=== PATIENT | female | born 1985 | race Caucasian/White ===

== ENCOUNTER 2017-07-28 12:45 | Day surgery (SDC) | payer OTHER ==
[2017-07-28] MEDS ORDERED: DEXAMETHASONE SOD PHOSPHATE INJ 4 MG/1 ML VIAL ONE (14:36)
[2017-07-28] MEDS ORDERED: ONDANSETRON HCL INJ/PF 4 MG/2 ML SDV ONE (14:37)
[2017-07-28] MEDS ORDERED: MIDAZOLAM 2 MG/2 ML INJ ONE (14:37)
[2017-07-28] MEDS ORDERED: FENTANYL CITRATE INJ/PF 100 MCG/2 ML AMPUL ONE (14:37)
[2017-07-28] MEDS ORDERED: PROPOFOL INJ 200 MG/20 ML VIAL IV ONE (14:37)
[2017-07-28] MEDS ORDERED: SUCCINYLCHOLINE CHLORIDE INJ 200 MG/10 ML VIAL ONE (14:38)
[2017-07-28] MEDS: BUPIVACAINE HCL 0.5%-EPI 1:200000 INJ/PF 30 ML VIAL ONE ×2 (15:05)
[2017-07-28] MEDS ORDERED: OXYCODONE-ACETAMINOPHEN 5-325 MG TABLET ONE (15:44)
--- NOTE | 2017-07-29 18:27 | [facility] OPERATIVE REPORT E ---
[facility] Operative Report NAME: PACHECO MEJIA AGE: 32Y DATE OF SURGERY: 07/28/2017 PREOPERATIVE DIAGNOSIS: CHRONIC TONSILLITIS. POSTOPERATIVE DIAGNOSIS: CHRONIC TONSILLITIS. OPERATION PERFORMED: Bilateral tonsillectomy, patient age greater than 12. SURGEON: ISAIAS PALACIOS D.O. ANESTHESIA: General endotracheal tube. ANESTHESIA STAFF: ADINA Alfred ESTIMATED BLOOD LOSS: 5 mL COMPLICATIONS: None. DRAINS: None. SPONGE COUNT: Verified. MATERIALS FORWARDED SPECIMEN: Left and right tonsillar tissue. FINDINGS: 1. The tonsils were noted to be 1 to 2+ in size, were cryptic in appearance, and were with significant tonsillar debris present bilateral. 2. The soft palatal tissues were redundant in nature, and the uvula was otherwise unremarkable in appearance. INDICATIONS: This is a 32-year-old white female patient who was seen and evaluated in the [facility]. The patient had been referred for, and she complained of, a longstanding history over the years consistent with chronic tonsillitis and symptoms and history consistent with keratosis pharyngeus. The patient has desired to undergo tonsil surgery over the years to move beyond her chronic tonsil difficulties. After extensive discussion with the patient, recommendation and plan was made for tonsillectomy. The patient voiced an understanding of the described surgical plan, agreed to proceed, and consent was obtained. PROCEDURE: The patient was taken to the main operating room and placed on the operating room table in the supine position. Appropriate monitors were placed. Using mask and IV access, general anesthesia was induced. The patient was next transorally intubated without difficulty. The patient was rotated 90 degrees and positioned for tonsil surgery. The patient's lips, teeth, tongue and inside of the mouth were inspected and noted to be without defects. There was a mouth gag inserted. It was opened, and the patient was placed into suspension. There was a soft catheter placed through the patient's nose that was used to suspend the soft palate. Findings are as noted above. Local anesthetic with epinephrine was injected at the prabhu-tonsillar areas. At this point, the plasma J-hook device was used to dissect and remove tonsillar tissue on each side. This device was also used to provide adequate hemostasis. Saline irritation was performed and suctioned. There was adequate hemostasis noted. The soft catheter was next released and removed from the patient's nose. The mouth gag was removed from the patient's mouth without difficulty. There was no damage to the lips, teeth, tongue, gums, or inside of the mouth. The patient was then returned to the anesthesia staff and was allowed to emerge from general anesthesia. The patient was extubated in the main operating room and was then transported to the post-anesthesia recovery unit in stable condition. There were no complications. DICTATING PHYSICIAN: ISAIAS PALACIOS D.O. [id number] PHY#: [id number] ID: [id number] JOB#: [id number] ACCT: [id number] cc:ISAIAS PALACIOS D.O. > MTDD
== END 2017-07-28 16:39 | disposition home or self-care (01) ==
LOC: SC 12:45
PROVIDERS: ATTEND Otolaryngology
PROC: 0CTPXZZ Resection of Tonsils, External Approach (ICD-10-PCS; principal; 2017-07-28 14:00)
DX: J35.01 Chronic tonsillitis (principal); F17.210 Nicotine dependence, cigarettes, uncomplicated; F32.9 Major depressive disorder, single episode, unspecified; Z79.899 Other long term (current) drug therapy
CPT/HCPCS: 88304 ×2; 42826; J2250; J3490; J1100; J3010; J0330; J2405; J2704; 170

== ENCOUNTER 2020-04-09 14:24 | Emergency (ER) | payer OTHER ==
--- NOTE | 2020-04-09 17:17 | ER Document Report ---
ED Headache - General Chief Complaint: Headache Stated Complaint: DRY COUGH/HEADACHE/NECK PAIN Time Seen by Provider: 04/09/20 16:40 Primary Care Provider: VITOR PARIS MD [ACTIVE STAFF] - Follow up as needed Notes: CHIEF COMPLAINT: Headache cough shortness of breath HPI: 35-year-old female presenting for slight dry cough with some shortness of breath that she feels is not normal for her over the last week. No fever. Patient states that she has had some intermittent headaches over the last 3 to 4 days more on the right side with some radiation down the posterior neck into the back. No anterior neck pain. Patient states the headaches are intermittent and go away on their own without treatment. Today she was at the gym and states that every time she would jump she would feel a "clicking" in the upper aspect of the right forehead where she would have a headache. She has no headache currently. No visual change or loss. Denies nausea vomiting. ROS: See HPI - all other systems were reviewed and are otherwise negative Constitutional: no fever Eyes: no drainage, no blurred vision ENT: no runny nose, no sore throat Cardiovascular: no chest pain Resp: + SOB, + cough GI: no vomiting, no diarrhea, no abdominal pain : no dysuria Integumentary: no rash Allergy: no hives Musculoskeletal: no extremity pain or swelling Neurological: no numbness/tingling, no weakness MEDICATIONS: I agree with the patient medications as charted by the RN. ALLERGIES: I agree with the allergies as charted by the RN. PAST MEDICAL HISTORY/PAST SURGICAL HISTORY: Reviewed and agree as charted by RN. SOCIAL HISTORY: Reviewed and agree as charted by RN. FAMILY HISTORY: No significant familial comorbid conditions directly related to patient complaint EXAM: Reviewed vital signs as charted by RN. CONSTITUTIONAL: Alert and oriented and responds appropriately to questions. Well-appearing; well-nourished HEAD: Normocephalic; atraumatic EYES: PERRL; Conjunctivae clear, sclerae non-icteric. Funduscopic exam reveals no evidence of disc edema or hemorrhage ENT: normal nose; no rhinorrhea; moist mucous membranes; pharynx without lesions noted, no uvula edema or deviation, no tonsillar hypertrophy, phonation normal NECK: Supple without meningismus; non-tender; no cervical lymphadenopathy, no masses CARD: RRR; no murmurs, no clicks, no rubs, no gallops; symmetric distal pulses RESP: Normal chest excursion without splinting or tachypnea; breath sounds clear and equal bilaterally; no wheezes, no rhonchi, no rales, pulse oximetry 99% on room air not hypoxic ABD/GI: Normal bowel sounds; non-distended; soft, non-tender, no rebound, no guarding; no palpable organomegaly or masses. BACK: The back appears normal and is non-tender to palpation, there is no CVA tenderness EXT: Normal ROM in all joints; non-tender to palpation; no cyanosis, no effusions, no edema SKIN: Normal color for age and race; warm; dry; good turgor; no acute lesions noted NEURO: Moves all extremities equally; Motor and sensory function intact. Gait is normal. Strength equal 5/5 bilateral upper and lower extremities. Sensation intact and equal bilateral upper and lower extremities. PSYCH: The patient's mood and manner are appropriate. Grooming and personal hygiene are appropriate. MDM: 35-year-old otherwise healthy female intermittent headaches for 3 to 4 days a clicking sensation when jumping at the gym today in the head. Neurologically intact headache is completely resolved at this time. Also with a slight cough and some subjective shortness of breath over the last week. No fever no dyspnea. Will obtain chest x-ray and COVID test. Patient does report that her uncle possibly had an aneurysm but she does not know what type. No history of aneurysms in mother father or brothers or sisters TRAVEL OUTSIDE OF THE [place] IN LAST 30 DAYS: No - Related Data Allergies/Adverse Reactions: No Known Allergies Allergy (Verified 04/09/20 16:47) Home Medications: Wellbutrin, klonopin, b/c, and vitamins (misc) Past Medical History - Social History Smoking Status: Former Smoker Chew tobacco use (# tins/day): No Frequency of alcohol use: Social Drug Abuse: None Family History: Reviewed & Not Pertinent Patient has homicidal ideation: No - Past Medical History Cardiac Medical History: Denies: Hx Heart Attack, Hx Hypertension Pulmonary Medical History: Denies: Hx Asthma Neurological Medical History: Denies: Hx Cerebrovascular Accident, Hx Seizures GI Medical History: Denies: Hx Hepatitis, Hx Hiatal Hernia, Hx Ulcer Infectious Medical History: Denies: Hx Hepatitis Past Surgical History: Denies: Hx Hysterectomy, Hx Mastectomy, Hx Open Heart Surgery, Hx Pacemaker - Immunizations Hx Diphtheria, Pertussis, Tetanus Vaccination: Yes Physical Exam - Vital signs Vitals: Temp Pulse Resp BP Pulse Ox 98.1 F 75 20 128/82 H 100 04/09/20 14:30 04/09/20 14:30 04/09/20 14:30 04/09/20 14:30 04/09/20 14:30 Course - Re-evaluation Re-evalutation: 04/09/20 17:31 Chest x-ray on my review does not show evidence of infiltrate pneumothorax or pneumonia 04/09/20 19:07 CT of the head does not show evidence of bleed or fracture. Alert and oriented answering all questions appropriately we discussed her CT findings she follows at [facility] and will follow back up through them for further evaluation if her symptoms recur or persist. 04/09/20 19:08 Patient will be considered a person under investigation for COVID-19 will self quarantine at home pending results - Vital Signs Vital signs: Temp Pulse Resp BP Pulse Ox 98.1 F 75 20 128/82 H 100 04/09/20 14:30 04/09/20 14:30 04/09/20 14:30 04/09/20 14:30 04/09/20 14:30 Discharge - Discharge Clinical Impression: Cough, Person under investigation for COVID-19 Dyspnea Qualifiers: Dyspnea type: other forms of dyspnea Qualified Code(s): R06.09 - Other forms of dyspnea Headache Qualifiers: Headache type: unspecified Headache chronicity pattern: acute headache Intractability: not intractable Qualified Code(s): R51 - Headache Condition: Stable Disposition: HOME, SELF-CARE Instructions: COVID-19 Guidance for Persons Under Investigation Additional Instructions: Motrin or Tylenol for headache or pain. Follow-up with your primary provider for further evaluation if you should have the clicking sensation continuing in the head your CT imaging today did not show evidence of bleeding. You may need further outpatient testing. If you suddenly lose vision, pass out, have weakness numbness or tingling on the left or right side return for reevaluation. You are considered a person under investigation for COVID-19 at this time self quarantine at home pending your results which may take 2 to 5 days and you should hear from someone at the hospital about your results. If you have shortness of breath you may use the albuterol inhaler 2 puffs every 4 hours as needed Prescriptions: Albuterol Sulfate [Proair HFA Inhalation Aerosol 8.5 gm MDI] 2 puff IH Q4H PRN #1 mdi PRN Reason:
--- NOTE | 2020-04-09 17:56 | RADIOLOGY REPORT (SQ) ---
EXAM DESCRIPTION: CHEST SINGLE VIEW IMAGES COMPLETED DATE/TIME: 04/09/2020 5:34 pm REASON FOR STUDY: sob COMPARISON: None. EXAM PARAMETERS: NUMBER OF VIEWS: One view. TECHNIQUE: Single frontal radiographic view of the chest acquired. RADIATION DOSE: NA LIMITATIONS: None. FINDINGS: LUNGS AND PLEURA: No opacities, masses or pneumothorax. No pleural effusion. MEDIASTINUM AND HILAR STRUCTURES: No masses. Contour normal. HEART AND VASCULAR STRUCTURES: Heart normal in size. Normal vasculature. BONES: No acute findings. HARDWARE: None in the chest. OTHER: No other significant finding. IMPRESSION: NO ACUTE RADIOGRAPHIC FINDING IN THE CHEST. TECHNICAL DOCUMENTATION: JOB ID: [id number] 2010 [employer]- All Rights Reserved Reading location - IP/workstation name: [email or web address]
[2020-04-09] MEDS ORDERED: IBUPROFEN 600 MG TABLET PO ONE (18:49)
--- NOTE | 2020-04-09 18:58 | RADIOLOGY REPORT (SQ) ---
EXAM DESCRIPTION: CT HEAD WITHOUT IMAGES COMPLETED DATE/TIME: 04/09/2020 6:42 pm REASON FOR STUDY: headache COMPARISON: None. TECHNIQUE: Axial images acquired through the brain without intravenous contrast. Images reviewed wi th bone, brain and subdural windows. Additional sagittal and coronal reconstructions were generated. Images stored on PACS. All CT scanners at this facility use dose modulation, iterative reconstruction, and/or weight based d osing when appropriate to reduce radiation dose to as low as reasonably achievable (ALARA). [facility]: Dose Right [facility]: CareDose [facility]: Dose Right [facility]: Teradose 4D [facility]: [employer] RADIATION DOSE: CT Rad equipment meets quality standard of care and radiation dose reduction techniq ues were employed. CTDIvol: 53.2 mGy. DLP: 1097 mGy-cm. mGy. LIMITATIONS: None. FINDINGS: VENTRICLES: Normal size and contour. CEREBRUM: No masses. No hemorrhage. No midline shift. No evidence for acute infarction. Normal gra y/white matter differentiation. No areas of low density in the white matter. CEREBELLUM: No masses. No hemorrhage. No alteration of density. No evidence for acute infarction. EXTRAAXIAL SPACES: No fluid collections. No masses. ORBITS AND GLOBE: No intra- or extraconal masses. Normal contour of globe without masses. CALVARIUM: No fracture. PARANASAL SINUSES: No fluid or mucosal thickening. SOFT TISSUES: No mass or hematoma. OTHER: No other significant finding. IMPRESSION: NORMAL BRAIN CT WITHOUT CONTRAST. EVIDENCE OF ACUTE STROKE: NO. COMMENT: Quality ID # [id number]: Final reports with documentation of one or more dose reduction techniques (e.g., Automated exposure control, adjustment of the mA and/or kV according to patient size, use of iterative reconstruction technique) TECHNICAL DOCUMENTATION: JOB ID: [id number] 2010 [employer]- All Rights Reserved Reading location - IP/workstation name: [email or web address]
[2020-04-09 19:23] VITALS: BP 118/83
== END 2020-04-09 19:23 | disposition home or self-care (01) ==
LOC: ER 14:24
DX: R51 Headache (principal); R05 Cough; R06.09 Other forms of dyspnea; M54.2 Cervicalgia; R06.02 Shortness of breath; M54.9 Dorsalgia, unspecified; Z20.828 Contact with and (suspected) exposure to other viral communicable diseases; Z87.891 Personal history of nicotine dependence
CPT/HCPCS: 99285; 87635; 71045; 70450; C9803